=== PATIENT | female | born 1985 | race Two or more races ===

== ENCOUNTER 2022-07-05 14:38 | Emergency (ER) | payer MEDICAID, OTHER ==
[~2022-07-05] VITALS: Ht 162.6 cm; Wt 60.0 kg
[2022-07-05 15:30] LABS: Basophils # (auto) 0 10 ^3/uL (0-0.2); Basophils % (auto) 0.3 % (0.0-2.0); Eosinophils # (auto) 0 10 ^3/uL (0-0.8); Eosinophils % (auto) 0.1 % (0.0-7.0); Hematocrit 39.1 % (36.0-46.0); Hemoglobin 13.1 g/dL (12.2-16.2); Lymphocytes # (auto) 1.1 10 ^3/uL (0.4-5.4); Lymphocytes % (auto) 11.3 % (10.0-50.0); Mean Corpuscular Hemoglobin 30.8 pg (28.0-32.0); Mean Corpuscular Hgb Conc. 33.6 g/dL (32.0-36.0); Mean Corpuscular Volume 91.8 fL (80.0-100.0); Monocytes # (auto) 0.7 10 ^3/uL (0-1.3); Neutrophils # (auto) 8.1 10 ^3/uL (1.6-8.6); Neutrophils % (auto) 81.3 % (37.0-80.0); Red Blood Cells 4.26 10^6/uL (4.0-5.20)
[2022-07-05] MEDS ORDERED: LORazepam 2MG/ML-1ML VIAL IV ONE (15:30)
[2022-07-05] MEDS ORDERED: SODIUM CHLORIDE 0.9% 1,000 ML IVB ONE (15:30)
[2022-07-05] MEDS ORDERED: FOLIC ACID 1 MG in D5W 5% 50 ML INJ ONE (15:45)
[2022-07-05] MEDS ORDERED: THIAMINE 100mg/ml INJ (200mg/2ml VIAL) IV ONE (15:45)
[2022-07-05 15:46] LABS: Alanine Aminotransferase 66 U/L (13-56); Albumin 3.8 g/dL (3.4-5.0); Anion Gap 10 (5-15); Aspartate Aminotransferase 66 U/L (15-37); BUN/Creatinine Ratio 5.1; Blood Alcohol < 3.0 mg/dL (0-5); Blood Urea Nitrogen 4 mg/dL (7-18); Calcium 8.8 mg/dL (8.5-10.1); Carbon Dioxide 21 mmol/L (21-32); Chloride 105 mmol/L (98-107); GFR African American 108 mL/min; GFR Non-African American 89 mL/min; Glucose 139 mg/dL (74-106); Potassium 3.6 mmol/L (3.5-5.1); Sodium 136 mmol/L (136-145)
[2022-07-05 15:48] LABS: Alkaline Phosphatase 59 U/L (45-117); Bilirubin, Total 0.3 mg/dL (0.2-1.0); Total Protein 7.6 g/dL (6.4-8.2)
[2022-07-05] MEDS ORDERED: THIA100T10 PO (17:47)
[2022-07-05] MEDS ORDERED: CHL25C GT (17:47)
[2022-07-05] MEDS ORDERED: FOLI5CAP PO (17:47)
[2022-07-05] MEDS ORDERED: chlordiazePOXIDE HCL 25 MG CAP PO ONE (18:00)
[2022-07-05] MEDS ORDERED: SODIUM CHLORIDE 0.9% 500 ML IV ONE (18:45)
[2022-07-05 19:00] VITALS: BP 113/70
== END 2022-07-05 20:02 | disposition home or self-care (01) ==
LOC: ER 14:40
DX: G40.89 Other seizures (principal); R79.89 Other specified abnormal findings of blood chemistry; F17.210 Nicotine dependence, cigarettes, uncomplicated; F10.90 Alcohol use, unspecified, uncomplicated; F15.90 Other stimulant use, unspecified, uncomplicated; Z98.890 Other specified postprocedural states
CPT/HCPCS: 36415; 71045; 80053; 80320; 83735; 84702; 85025; 93005; 96361; 96365; 96375; 99285; J2060; J3411; J7030; J7040; J7060